=== PATIENT | male | born 1955 | race Caucasian/White ===

== ENCOUNTER → 2017-05-21 | Outpatient (CLI) | payer OTHER | LOC: RAD 08:49 | DX: R06.00 Dyspnea, unspecified (principal) ==

== ENCOUNTER 2018-05-21 14:25 | Emergency (ER) | payer OTHER ==
[~2018-05-21] VITALS: Ht 190.5 cm; Wt 102.1 kg
[2018-05-21] MEDS ORDERED: DIOVAN160 MG PO (14:53)
[2018-05-21] MEDS ORDERED: NEXIUM40 MG PO (14:53)
[2018-05-21] MEDS ORDERED: NORVASC5 MG PO (14:54)
[2018-05-21] MEDS ORDERED: MOBIC15 MG PO (14:54)
[2018-05-21] MEDS ORDERED: LOPRESSOR50 PO (14:54)
[2018-05-21 15:37] LABS: ABSOLUTE NEUTROPHILS 5.4 thou/uL (1.4-8.2); BASOPHILS 0.2 % (0.0-2.0); EOSINOPHILS 0.6 % (0.0-3.0); HEMOGLOBIN 17.1 gm/dL (14.0-18.0); LYMPHOCYTES 5.6 % (24.0-44.0); MCH 31.7 pg (26.0-34.0); MCHC 34.9 g/dL (28.0-37.0); MCV 90.8 fL (80.0-100.0); MONOCYTES 8.3 % (1.0-8.0); PLATELET COUNT 184 thou/uL (150-400); POLYS 85.3 % (36.0-66.0); RBC 5.39 mil/uL (4.50-6.00); RDW 13.6 % (10.5-14.5); WBC 6.3 thou/uL (4.0-11.0)
[2018-05-21 15:40] LABS: ANION GAP 11 mmol/L (7-16); BUN 29 mg/dL (7-18); CALCIUM 9.2 mg/dL (8.5-10.1); CHLORIDE 103 mmol/L (98-107); CO2 26 mmol/L (21-32); CREATININE 1.2 mg/dL (0.7-1.3); GLUCOSE 112 mg/dL (74-106); POTASSIUM 3.3 mmol/L (3.5-5.1); SODIUM 140 mmol/L (136-145)
[2018-05-21 15:49] LABS: ALBUMIN 3.8 g/dL (3.4-5.0); SGOT 22 U/L (15-37); SGPT 52 U/L (30-65); TOTAL BILIRUBIN 0.8 mg/dL (<0.1-1.0); TOTAL PROTEIN 7.4 g/dL (6.4-8.2); TROPONIN-I <0.06 ng/mL (<0.06)
[2018-05-21] MEDS ORDERED: ZOFRAN ODT4 MG PO (17:03)
[2018-05-21 18:03] VITALS: BP 106/74
--- NOTE | 2018-05-22 15:12 | EKG ---
[address] [address] ELECTROCARDIOGRAM REPORT Name: BUSTER COBB Room #: DEP BERNIE España#: [id number] Admission: 05/21/18 Attend Phys: Discharge: 05/21/18 Date of : 59 Report #: [id number] THIS REPORT FOR: //name// [facility] ED Test Date: 2018-05-21 Test Time: 16:23:43 Pat Name: BUSTER COBB Department: Room: Gender: Digital Sales Assistant: DOLORES : 1955 Requested By: Martin Antonio Order Number: [id number] MD: Jairo Sanchez Measurements Intervals [place] Rate: 73 P: 67 [place]: 201 QRS: 68 QRSD: 115 T: -14 QT: 404 QTc: 446 Interpretive Statements Sinus rhythm Ventricular trigeminy Nonspecific intraventricular conduction delay Borderline repolarization abnormality Compared to ECG 01/26/2006 07:03:11 Ventricular premature complex(es) now present Intraventricular conduction delay now present Sinus arrhythmia no longer present Electronically Signed On 05-22-2018 15:12:24 FINANCIAL PROFESSIONAL by Jairo Sanchez [email or web address] <ELECTRONICALLY SIGNED> By: Jairo Sanchez MD 05/22/18 1512 1623 1623 Jairo Sanchez MD /EPI
== END 2018-05-21 18:04 | disposition home or self-care (01) ==
LOC: ER 14:25
PROVIDERS: Emergency Medicine
DX: K52.9 Noninfective gastroenteritis and colitis, unspecified (principal); R00.8 Other abnormalities of heart beat; I10 Essential (primary) hypertension; E78.00 Pure hypercholesterolemia, unspecified

== ENCOUNTER 2018-08-15 19:28 | Emergency (ER) | payer OTHER ==
[~2018-08-15] VITALS: Ht 190.5 cm; Wt 103.4 kg
[~2018-08-15 19:28] MED LIST: DIOVAN160 MG PO; LOPRESSOR50 PO; MOBIC15 MG PO; NEXIUM40 MG PO; NORVASC5 MG PO; ZOFRAN ODT4 MG PO
[2018-08-15] MEDS ORDERED: TESSALON PERLE100 MG PO (21:42)
[2018-08-15] MEDS ORDERED: GUAIFEN-CODEINE10 ML PO (21:42)
[2018-08-15 22:11] VITALS: BP 160/80
--- NOTE | 2018-08-16 10:51 | EKG ---
[place] [address] [employer] [place] [address] ELECTROCARDIOGRAM REPORT Name: BUSTER COBB Room #: DEP BERNIE España#: [id number] ������������������ Admission: 08/15/18 ������������������ Attend Phys: Discharge: 08/15/18 ������������������ Date of : 59 Report #: [id number] ����������������������������������������������������������������� [id number] THIS REPORT FOR: //name// [facility] ED Test Date: 2018-08-15 Test Time: 20:04:07 Pat Name: BUSTER COBB Department: Room: Gender: Sales Support Specialist: : 1955 Requested By: Daria Camilo Order Number: [id number] MD: Aguilar Velasquez Measurements Intervals [place] Rate: 96 P: 41 MS: 210 QRS: 58 QRSD: 100 T: 26 QT: 329 QTc: 416 Interpretive Statements Sinus rhythm Prolonged [place] interval Compared to ECG 05/21/2018 16:23:43 First degree AV block now present Ventricular premature complex(es) no longer present Intraventricular conduction delay no longer present Electronically Signed On 08-16-2018 10:51:34 CDT by Aguilar Velasquez [email or web address] ��������������������������������������������� <ELECTRONICALLY SIGNED> ���������������������������������������� By: Aguilar Velasquez MD ��������������������������������������������� 08/16/18 1051 03 03 Aguilar Velasquez MD /ROSEMARY
--- NOTE | 2018-08-16 10:52 | EKG ---
[place] [address] [facility] [email or web address] [address] ELECTROCARDIOGRAM REPORT Name: BUSTER COBB Room #: DEP BERNIE Esp[place]#: [id number] ������������������ Admission: 08/15/18 ������������������ Attend Phys: Discharge: 08/15/18 ������������������ Date of : 59 Report #: [id number] ����������������������������������������������������������������� [id number] THIS REPORT FOR: //name// [facility] ED Test Date: 2018-08-15 Test Time: 23:21:52 Pat Name: BUSTER COBB Department: Room: Gender: Juvenile Counselor: : 1955 Requested By: Daria Camilo Order Number: [id number] MD: Aguilar Velasquez Measurements Intervals [place] Rate: 85 P: 47 [place]: 205 QRS: 53 QRSD: 92 T: 11 QT: 343 QTc: 408 Interpretive Statements Sinus rhythm Borderline prolonged [place] interval Compared to ECG 05/21/2018 16:23:43 Ventricular premature complex(es) no longer present Intraventricular conduction delay no longer present Electronically Signed On 08-16-2018 10:52:12 CDT by Aguilar Velasquez [email or web address] ��������������������������������������������� <ELECTRONICALLY SIGNED> ���������������������������������������� By: Aguilar Velasquez MD ��������������������������������������������� 08/16/18 1052 2321 2321 Aguilar Velasquez MD /ROSEMARY
== END 2018-08-15 22:11 | disposition home or self-care (01) ==
LOC: ER 19:28
DX: J10.1 Influenza due to other identified influenza virus with other respiratory manifestations (principal); I10 Essential (primary) hypertension; E78.00 Pure hypercholesterolemia, unspecified; G25.81 Restless legs syndrome

== ENCOUNTER 2018-08-15 23:14 | Emergency (ER) | payer OTHER ==
[~2018-08-15] VITALS: Ht 190.5 cm; Wt 103.4 kg
[~2018-08-15 23:14] MED LIST changes: +GUAIFEN-CODEINE10 ML PO; +TESSALON PERLE100 MG PO
[2018-08-15 23:26] LABS: ABSOLUTE NEUTROPHILS 5.9 thou/uL (1.4-8.2); BASOPHILS 0.4 % (0.0-2.0); EOSINOPHILS 0.8 % (0.0-3.0); HEMATOCRIT 40.5 % (42.0-52.0); LYMPHOCYTES 8.1 % (24.0-44.0); MCH 31.6 pg (26.0-34.0); MCHC 34.5 g/dL (28.0-37.0); MCV 91.6 fL (80.0-100.0); MONOCYTES 11.6 % (1.0-8.0); PLATELET COUNT 158 thou/uL (150-400); POLYS 79.1 % (36.0-66.0); RBC 4.42 mil/uL (4.50-6.00); RDW 13.3 % (10.5-14.5); WBC 7.5 thou/uL (4.0-11.0)
[2018-08-15 23:35] LABS: CALCIUM 9.2 mg/dL (8.5-10.1); CREATININE 1.2 mg/dL (0.7-1.3); POTASSIUM 3.9 mmol/L (3.5-5.1)
[2018-08-15 23:41] LABS: ALBUMIN 3.6 g/dL (3.4-5.0); DIRECT BILIRUBIN 0.1 mg/dL (<0.1-0.3); TOTAL BILIRUBIN 0.4 mg/dL (<0.1-1.0); TOTAL PROTEIN 6.7 g/dL (6.4-8.2)
[2018-08-16 03:34] VITALS: BP 125/66
== END 2018-08-16 03:36 | disposition home or self-care (01) ==
LOC: ER 23:14
PROVIDERS: Emergency Medicine
DX: J10.1 Influenza due to other identified influenza virus with other respiratory manifestations (principal); R55 Syncope and collapse; I10 Essential (primary) hypertension; E78.00 Pure hypercholesterolemia, unspecified; G25.81 Restless legs syndrome

== ENCOUNTER 2019-03-11 05:58 | Inpatient (IN) | payer OTHER ==
[2019-02-22 13:28] LABS: URINE BILIRUBIN NEGATIVE (Negative); URINE BLOOD NEGATIVE (Negative); URINE CLARITY CLEAR; URINE COLOR YELLOW; URINE GLUCOSE-RANDOM* NEGATIVE (Negative); URINE KETONES NEGATIVE (Negative); URINE LEUKOCYTES-REFLEX NEGATIVE (Negative); URINE NITRITE-REFLEX NEGATIVE (Negative); URINE PROTEIN (DIPSTICK) NEGATIVE (Negative); URINE UROBILINOGEN 0.2 E.U./dl (0.2-1.0)
[2019-02-22 13:33] LABS: HEMATOCRIT 46.5 % (42.0-52.0); HEMOGLOBIN 15.6 gm/dL (14.0-18.0); MCH 30.9 pg (26.0-34.0); MCHC 33.4 g/dL (28.0-37.0); MCV 92.5 fL (80.0-100.0); RBC 5.03 mil/uL (4.50-6.00); RDW 14.1 % (10.5-14.5); WBC 6.8 thou/uL (4.0-11.0)
[2019-02-22 13:45] LABS: ALBUMIN 4.3 g/dL (3.4-5.0); CALCIUM 9.8 mg/dL (8.5-10.1); CREATININE 0.8 mg/dL (0.7-1.3); POTASSIUM 3.9 mmol/L (3.5-5.1); PROTIME 10.8 Seconds (9.3-11.4)
[~2019-03-11] VITALS: Ht 190.5 cm; Wt 103.0 kg
[~2019-03-11 05:58] MED LIST changes: +COQ-10100 MG PO; +MULTI VITAMIN1 EACH PO; +OMEGA-3 KRILL1 EACH PO; +PROBIOTIC1 EAC1 PO; +TOPROL XL100 MG PO; +TURMERIC500 M2 PO; +VALSARTAN-HCTZ1 EAC1 PO; +VITAMIN B-12500 MCG PO; +VITAMIN D-32000 UNIT PO; +VITAMIN E400 UNI6 PO; +VITAMINC500 PO
[2019-03-11 06:53] VITALS: BP 147/89
[2019-03-11 10:40] VITALS: BP 146/93
--- NOTE | 2019-03-11 12:18 | O ---
[facility] [place] [address] [place] [address] OPERATIVE REPORT Name: BUSTER COBB Room #: 433-I [facility] IN .R.#: [id number] Admission: 03/11/19 Attend Phys: See Guevara MD Discharge: Date of : 59 Report #: [id number] THIS REPORT FOR: //name// CC: See Hale DATE OF SERVICE: 03/11/2019 PREOPERATIVE DIAGNOSIS: End-stage degenerative arthritis, left knee with varus malalignment. POSTOPERATIVE DIAGNOSIS: End-stage degenerative arthritis, left knee with varus malalignment. PROCEDURE: Left total knee arthroplasty. SURGEON: See Guevara MD. INDICATIONS: This healthy, active 63-year-old gentleman has progressive bilateral knee pain with mild varus malalignment and clinical radiographic evidence of significant 3-compartment degenerative change. He has tried conservative measures in the past without much benefit. He has elected to go ahead with left total knee replacement at this time. DESCRIPTION OF PROCEDURE: The patient was taken to the operating room where he was placed under general anesthesia. A femoral nerve block was also applied. Preoperative antibiotics were administered. The left knee and leg were meticulously prepped and draped and a thigh tourniquet inflated to 325 mmHg. An anterior longitudinal skin incision was made and carried through the medial retinaculum, reflecting the patella laterally. Marked degenerative change in all 3 compartments was noted. Intramedullary guides were used on both the femur and the tibia and the Luis and Nephew knee system was utilized. The femur seemed best suited for a size 6 femoral component. The tibia was best suited for a size 5 tibial component. The tibia was cut perpendicular to long axis of the bone, correcting the mild preoperative varus malalignment. The patellar surface was resected, a 38 mm patellar button fit nicely. A trial reduction was performed and an 11 mm polyethylene insert seemed to fit appropriately with full knee extension, good flexion, and satisfactory stability with varus valgus stress. The preoperative varus malalignment was improved nicely. The patella seemed to track nicely. These trial components were removed. The intramedullary canal was blocked with a bone block on both the femoral and tibial sides. The surfaces were thoroughly irrigated and dried. Methyl methacrylate cement was mixed and injected into the porous surface of the tibia. The size 5 nonporous tibial base plate was then applied, positioning this in appropriate alignment. It seated nicely and [facility] [address] [place] [address] OPERATIVE REPORT Name: REZABUSTER Kelle Room #: 433-I [facility] IN [facility]#: [id number] Admission: 03/11/19 Attend Phys: See Guevara MD Discharge: Date of : 59 Report #: [id number] appeared to be secure. An 11 mm polyethylene Legion cruciate retaining polyethylene insert was inserted. This snapped into place and seated nicely and appeared to be secure. A size 6 porous Legion cruciate retaining femoral component was impacted on the distal femur. It seated nicely and appeared to be secure. A 38 mm patellar button was cemented into place using appropriate anchor holes and cement. This was secured with a patellar clamp until the cement had fully hardened. Once the cement was secure, range of motion, alignment and stability were once again assessed and felt to be satisfactory. The knee demonstrated full knee extension. The patellar tracks nicely. The knee flexes well beyond 135 degrees and seems to be stable. At this point, a Hemovac drain was left in the wound, exiting through a separate stab incision. The fascia was then closed with multiple #1 Vicryl sutures. The tourniquet was deflated after a total tourniquet time of 58 minutes. The subcutaneous tissues were closed with 0 Monocryl. The skin was closed with skin ghassan. A sterile dressing was applied. The patient was awakened and returned to recovery room in good condition. <ELECTRONICALLY SIGNED> By: See Guevara MD 03/11/19 1218 0919 0931 See Guevara MD /nt
[2019-03-11 16:42] VITALS: BP 138/95
--- NOTE | 2019-03-11 17:40 | NUR ---
STARTED 1600IV ABT AT THIS TIME RECIEVED FROM PHARMACY AT THIS TIME'
--- NOTE | 2019-03-11 19:30 | NUR ---
PT ARRIVED ON UNIT AT 10:49 PT ALERT XS 4 ACCOMPANIED BY . Enzo.Cheryl. 97.1 18 65 146/93 O2 SAT =97 RA. HAS PICCO DRESSING TO LEFT KNEE AND HEMO VAC EMPTIED 60 CC. IV FLUIDS STARTED ORDERED.
[2019-03-11 20:53] VITALS: BP 140/92
[2019-03-12 00:45] VITALS: BP 119/79
[2019-03-12 03:40] LABS: HEMATOCRIT 38.8 % (42.0-52.0); MCHC 33.5 g/dL (28.0-37.0); MCV 92.4 fL (80.0-100.0); RBC 4.2 mil/uL (4.50-6.00); RDW 13.6 % (10.5-14.5); WBC 12.8 thou/uL (4.0-11.0)
[2019-03-12 04:20] VITALS: BP 125/81
--- NOTE | 2019-03-12 05:28 | NUR ---
PATIENT ALERT AND ORIENTED X4. C/O PAIN X2, MED GIVEN. SAT ON EDGE OF BED LAST NIGHT AND STOOD BY BED. NO PROBLEMS NOTED. PATIENT TOLERATED WELL. DRESSING ON L KNEE D/I. HEMAVAC REMOVED THIS AM. SMALL AMOUNT OF BLEEDING NOTED, PRESSURE APPLIED FOR ABOUT A MINUTE AND THEN A PRESSURE DRESSING APPLIED. PATIENT TOLERATED WELL. EXPLAINED TO PATIENT WHAT TO WATCH FOR FROM INSERTION SITE. PATIENT SLEPT MOST OF THE NIGHT.
[2019-03-12 07:42] VITALS: BP 117/82
--- NOTE | 2019-03-12 08:25 | NUR ---
INITIAL ASSESSMENT: Pt evaluated for d/c planning needs. Reviewed chart and spoke with nurse and pt. Pt is alert and oriented. Pt lives in house with spouse and was independent with ADL's prior to admission to the hospital. Pt has cane at home and CPAP. Pt will need walker on d/c from h ospital. Pt has not had home health in the past. Pt had outpatient PT prior to his surgery, and he plans to continue with outpatient PT on d/c. Will remain available to assist as needed.
--- NOTE | 2019-03-12 13:46 | NUR ---
ASSUMED CARE OF PT AT 0700. PT WALKED WITH PT TODAY AND BECAME FATIGUED AND WEAK. HEMO VAC WAS REMOVED. DRESSING ON THE L KNEE WAS CLEAN, DRY AND INTACT. PAIN BEING CONTROLLED WITH PAIN MEDICATION. BED AND CHAIR ALARM ON. BED IN LOWEST POSITION. CALL LIGHT WITH REACH AND FALL PRECAUTIONS IN PLACE. WILL CONTINUE TO MONITOR THE PT.
[2019-03-12 17:37] VITALS: BP 148/96
[2019-03-12 19:33] VITALS: BP 132/89
[2019-03-13] VITALS (7 sets, daily range): BP systolic 113–140; BP diastolic 64–97
--- NOTE | 2019-03-13 03:35 | NUR ---
PATIENT ALERT AND ORIENTED X4. C/O PAIN, MED GIVEN. UP WITH SBA. DRESSING ON L KNEE D/I. PASSING FLATUS BUT NO BM YET.SLEPT MOST OF NIGHT.
[2019-03-13 06:06] LABS: HEMATOCRIT 38.6 % (42.0-52.0); HEMOGLOBIN 12.9 gm/dL (14.0-18.0); MCH 31.2 pg (26.0-34.0); MCHC 33.4 g/dL (28.0-37.0); MCV 93.2 fL (80.0-100.0); RBC 4.14 mil/uL (4.50-6.00); RDW 13.9 % (10.5-14.5); WBC 11.6 thou/uL (4.0-11.0)
--- NOTE | 2019-03-13 16:50 | NUR ---
Assumed care of pt at 0700. Pt a&ox4. Pain controlled with prn pain medications. Dressing c/d/i. Ramin hose and SCD in place. Pt worked with PT. Orthostatic vitals completed. Call light within reach. Fall precautions in place. Will continue to monitor.
--- NOTE | 2019-03-14 04:11 | NUR ---
Pt. rested quietly at intervals during the night when checked on during frequent rounds. He has been medicated with po pain meds (see emar) for c/o left knee pain with some relief noted. Picco dressing to left knee is dry and intact. Bed alarm is on.
[2019-03-14 06:20] LABS: HEMATOCRIT 34.7 % (42.0-52.0); HEMOGLOBIN 11.8 gm/dL (14.0-18.0); MCH 31.6 pg (26.0-34.0); MCHC 34.1 g/dL (28.0-37.0); MCV 92.6 fL (80.0-100.0); RBC 3.75 mil/uL (4.50-6.00); RDW 13.4 % (10.5-14.5); WBC 10.7 thou/uL (4.0-11.0)
[2019-03-14 09:02] VITALS: BP 119/76
[2019-03-14 10:23] VITALS: BP 119/76
[2019-03-14 11:50] VITALS: BP 119/76
--- NOTE | 2019-03-14 12:35 | NUR ---
DISCHARGE PAPERWORK GONE OVER SIGNED AND COPY IN CHART. IV ACSESS DCD. RX GIVEN. ALL BELONGINGS PACKED AND SENT WITH PATIENT. PT WORKED WITH THERAPY AND WALKED AND CLIMBED STAIRS. PT GIVEN PRN PAIN MED BEFORE DISCHARGE.
== END 2019-03-14 12:30 | disposition home or self-care (01) | DRG 470 ==
LOC: 4S 05:58 → TBA 05:58 → PRE 08:06 → EDSTATUS 08:48 → OR 08:48 → PRE 08:52 → 4S 11:05 → PRE 12:31 → 4S 03-14 12:30
PROVIDERS: ADMIT Orthopaedic Surgery
PROC: 0SRD0J9 Replacement of Left Knee Joint with Synthetic Substitute, Cemented, Open Approach (ICD-10-PCS; principal; 2019-03-11)
DX: M17.12 Unilateral primary osteoarthritis, left knee (principal); M21.162 Varus deformity, not elsewhere classified, left knee; I95.1 Orthostatic hypotension; I10 Essential (primary) hypertension; K21.9 Gastro-esophageal reflux disease without esophagitis; G47.33 Obstructive sleep apnea (adult) (pediatric); Z85.828 Personal history of other malignant neoplasm of skin
CPT/HCPCS: 10102; 50010; 50101; 50415; 50954; 51130; 51225; 51412; 53364; 56525; 57095; 57104; 57180; 62110; 62900; 64042; 70005

== ENCOUNTER → 2021-02-22 | Outpatient (CLI) | payer BC ==
[~2021-02-22] MED LIST changes: +DIOVAN HCT 3201 EAC1 PO; +MELOXICAM15 MG PO; +NORVASC10 MG PO; +TYLENOL EXTRA500 MG PO; -VITAMIN D-32000 UNIT PO; +VITAMIN D350 MC3 PO
== END ==
LOC: SJCVCIMAG 08:16
PROVIDERS: ATTEND Internal Medicine
DX: I10 Essential (primary) hypertension (principal); R55 Syncope and collapse; R06.00 Dyspnea, unspecified

== ENCOUNTER → 2021-02-23 | Outpatient (CLI) | payer BC ==
[2021-02-23 11:39] LABS: URINE BILIRUBIN NEGATIVE (Negative); URINE BLOOD NEGATIVE (Negative); URINE CLARITY CLEAR; URINE COLOR YELLOW; URINE GLUCOSE-RANDOM* NEGATIVE (Negative); URINE KETONES NEGATIVE (Negative); URINE LEUKOCYTES-REFLEX NEGATIVE (Negative); URINE NITRITE-REFLEX NEGATIVE (Negative); URINE PROTEIN (DIPSTICK) NEGATIVE (Negative); URINE UROBILINOGEN 0.2 E.U./dl (0.2-1.0)
[2021-02-23 11:52] LABS: INR 1.02; PROTIME 11.1 Seconds (10.5-12.1)
== END ==
LOC: PAC 10:23
PROVIDERS: ATTEND Orthopaedic Surgery
DX: M17.11 Unilateral primary osteoarthritis, right knee (principal); I10 Essential (primary) hypertension

== ENCOUNTER → 2021-03-02 | Outpatient (CLI) | payer BC | LOC: LAB 12:03 | PROVIDERS: ATTEND Student in an Organized Health Care Education/Training Program | DX: Z01.812 Encounter for preprocedural laboratory examination (principal); Z20.822 Contact with and (suspected) exposure to COVID-19 ==

== ENCOUNTER 2021-03-05 06:14 | Observation (INO) | payer BC ==
[~2021-03-05] VITALS: Ht 188 cm; Wt 100.2 kg
[2021-03-05] VITALS (10 sets, daily range): BP systolic 111–140; BP diastolic 68–92
--- NOTE | 2021-03-05 09:56 | O ---
[facility] [place] [address] [place] [address] OPERATIVE REPORT Name: BUSTER COBB Room #: 150-2 ADM IN M.R.#: [id number] Admission: 03/05/21 Attend Phys: See Guevara MD Discharge: Date of : 59 Report #: [id number] THIS REPORT FOR: cc: Cody Hale MD, Rene P. MD Clymer,See Hassan MD ~ DATE OF SERVICE: 03/05/2021 PREOPERATIVE DIAGNOSIS: Right knee degenerative arthritis. POSTOPERATIVE DIAGNOSIS: Right knee degenerative arthritis. PROCEDURE: Right total knee arthroplasty. SURGEON: See Guevara MD INDICATIONS: This generally healthy, active 65-year-old gentleman has progressive degenerative arthritis of both knees. He underwent left total knee replacement 2 years ago with good result. He is returning now for right total knee replacement. We have discussed treatment options and risks and benefits. The patient and understand well. DESCRIPTION OF PROCEDURE: The patient was taken to the operating room where he was placed under general anesthesia. A femoral nerve block was also applied. The right knee and leg were meticulously prepped and draped and a thigh tourniquet inflated to 325 mmHg. An anterior longitudinal skin incision was made and carried through the medial retinaculum. The patella was reflected laterally. Marked degenerative change in all three compartments was noted. The Luis and Nephew knee system was utilized. Intramedullary guides were used on both the femur and the tibia. The femur was cut in 5 degrees of valgus and the tibia cut perpendicular to the long axis of the bone. Sufficient bone was resected to correct the preoperative varus malalignment and mild flexion contracture. The femur was best suited for a size 6 femoral component. The tibia was also best suited for a size 6 tibial component, a 9 mm polyethylene insert fit nicely and resulted in good knee range of motion, stability and alignment. The patellar surface was resected and a 38 mm patellar button fit nicely. The patella seemed to track well. The trial components were removed. The intramedullary canal was blocked with bone block on both the femoral and tibial sides. Methyl methacrylate cement was mixed and injected into the porous surface of the proximal tibia. The Luis and Nephew size 5 Margret II right nonporous tibial baseplate was then inserted. It was positioned in appropriate alignment and impacted into place. It seated nicely and appeared to be secure. Excess cement was removed around its margin. A 9 mm Legion cruciate retaining articular insert was then snapped into place. This also seated nicely and appeared to be secure. A size 6 right [address] [address] OPERATIVE REPORT Name: BUSTER COBB Room #: 150-2 [facility] IN .R.#: [id number] Admission: 03/05/21 Attend Phys: See Guevara MD Discharge: Date of : 59 Report #: [id number] retaining Legion porous femoral component was impacted on the distal femur. It seated nicely and appeared to be secure. A 38 mm Margret II patellar button was cemented into place using anchor holes and methyl methacrylate cement. It was secured with a patellar clamp until the cement had hardened, excess cement was removed around its margin. Once the cement was firm, alignment, range of motion and stability were assessed and felt to be satisfactory. The patella tracks nicely and appears to be stable. The tourniquet was deflated after a total tourniquet time of 52 minutes. The wound was copiously irrigated. A single Hemovac was left in the wound exiting through a separate stab incision. The fascia was closed with multiple #1 Vicryl sutures. The subcutaneous tissues were closed with 0 Monocryl. The skin was closed with skin ghassan. A sterile dressing was applied. The patient was awakened and returned to recovery room in good condition. <ELECTRONICALLY SIGNED> By: See Guevara MD 03/05/21 0956 0825 0839 See Guevara MD /nt
[2021-03-06 04:22] VITALS: BP 111/70
[2021-03-06 04:32] VITALS: BP 137/70
[2021-03-06 05:51] LABS: HEMATOCRIT 37.3 % (42.0-52.0); HEMOGLOBIN 12.7 gm/dL (14.0-18.0); MCH 31.2 pg (26.0-34.0); MCHC 33.9 g/dL (28.0-37.0); RBC 4.06 mil/uL (4.50-6.00); RDW 13.4 % (10.5-14.5); WBC 13.4 thou/uL (4.0-11.0)
[2021-03-06 06:09] LABS: CALCIUM 8.5 mg/dL (8.5-10.1); CREATININE 0.9 mg/dL (0.7-1.3)
--- NOTE | 2021-03-06 06:20 | NUR ---
Pt A/OX4,VSS. Pt/ at shift change reported they requested they requested for polar pack and indicated they would get one on the floor;informed I would follow up with wardrobe supervisor since we don't have any on the floor. [employer] [place] checked CS unable to locate any,advised to have them f/u in AM. Margaux SUMMERS contacted and stated the same. Pt and spouse update regarding above and verbalized understanding. Will endorse to oncoming nurse to follow up with OR. Pt running A flutter on the monitor asymptomatic. SHAMEKA dsg in place on right knee with a Hemovac w/sanguineous drainage 100cc. Resting quietly w/o any distress encouraged to call as needed.
[2021-03-06 07:05] VITALS: BP 136/87
--- NOTE | 2021-03-06 07:28 | EKG ---
[address] [place] [address] ELECTROCARDIOGRAM REPORT Name: BUSTER COBB Room #: 441-[facility] M.R.#: [id number] Admission: 03/05/21 Attend Phys: See Guevara MD Discharge: Date of : 59 Report #: [id number] [facility] Test Date: 2021-03-05 Test Time: 13:06:46 Pat Name: BUSTER COBB Department: Room: 441 Gender: M Glassware Verifier: NICOLÁS : 1955 Requested By: Sun Abrams Order Number: [id number] : Herve Dunaway Measurements Intervals [place] Rate: 79 P: [place]: QRS: 42 QRSD: 106 T: 29 QT: 394 QTc: 452 Interpretive Statements Atrial flutter with predominant 3:1 AV block Compared to ECG 08/15/2018 23:21:52 AV block, advanced (high-grade) now present ST (T wave) deviation now present Sinus rhythm no longer present Electronically Signed On 03-06-2021 7:28:34 CDT by Herve Dunaway [email or web address] <ELECTRONICALLY SIGNED> By: Herve Dunaway MD, FACC 03/06/21 0728 1306 1306 Herve Dunaway MD, FACC /EPI
--- NOTE | 2021-03-06 07:30 | EKG ---
[place] [address] [facility] [place] [address] ELECTROCARDIOGRAM REPORT Name: BUSTER COBB Room #: 441-[facility] M.R.#: [id number] Admission: 03/05/21 Attend Phys: See Guevara MD Discharge: Date of : 59 Report #: [id number] [facility] Test Date: 2021-03-05 Test Time: 16:15:40 Pat Name: BUSTER COBB Department: Room: [facility] Gender: M Vocational Placement Specialist: [id number] : 1955 Requested By: Bennett Gaitan Order Number: [id number] MD: Herve Dunaway Measurements Intervals [place] Rate: 86 P: [place]: QRS: 26 QRSD: 110 T: 8 QT: 385 QTc: 461 Interpretive Statements Atrial flutter with predominant 3:1 AV block Compared to ECG 03/05/2021 13:06:46 ST (T wave) deviation no longer present Electronically Signed On 03-06-2021 7:30:05 CDT by Herve Dunaway [email or web address] <ELECTRONICALLY SIGNED> By: Herve Dunaway MD, [facility] 03/06/21 0730 14 Herve Dunaway MD, FAC /EPI
--- NOTE | 2021-03-06 09:48 | NUR ---
Chart review. visited patient at bedside, getting ready to work with OT. Intro to cm and dcp. He has fww that he got after his 1st knee. Lives at home with his . Independent when feeling good. Has CPAP for bedtime and during naps. Manage own medication. Drives vehicle. 4 steps at home. Outpt therapy set up already for 03/09 at [facility]. DCP: home with outpt therapy.
[2021-03-06 15:26] VITALS: BP 136/87
[2021-03-06 15:32] VITALS: BP 128/84
--- NOTE | 2021-03-06 18:24 | NUR ---
D/C ORDER PENDING FOR AFTER PT. PER PT PT CAN D/C TODAY. HEMOVAC DRAINAGE REMOVE PER DR. GEORGE ORDERS. ICE POLAR PACK PLACE THIS AM PER PT REQUEST. IV AND TELE D/C. ALL BELONGINGS WITH PT. WENT THROUGH D/C INSTRUCTION WITH PT, PT AWARE OF OUTPT APPAOINTMENT. DENIES ANY QUESTIONS. PT TAKEN DOWN VIA WHEEL CHAIR, HERE TO GET PT
== END 2021-03-06 18:39 | disposition home or self-care (01) ==
LOC: PRE → 4S 06:14 → TBA 06:14 → PRE 08:16 → 4S 11:13 → PRE 11:44 → 4S 13:57 → PRE 14:51 → 4S 03-06 18:39
PROVIDERS: ADMIT Orthopaedic Surgery; ATTEND Orthopaedic Surgery
DX: M17.11 Unilateral primary osteoarthritis, right knee (principal); I48.92 Unspecified atrial flutter; I10 Essential (primary) hypertension; E78.5 Hyperlipidemia, unspecified; K21.9 Gastro-esophageal reflux disease without esophagitis; G47.33 Obstructive sleep apnea (adult) (pediatric); Z79.899 Other long term (current) drug therapy
CPT/HCPCS: 10100; 50010; 50101; 50415; 50954; 51130; 51225; 51320; 51412; 56525; 57095; 57103; 57104; 57180; 58449; 62110; 62900; 64042; 70005

== ENCOUNTER 2021-06-01 06:29 | Observation (INO) | payer BC ==
[~2021-06-01] VITALS: Ht 188 cm; Wt 102.1 kg
[2021-06-01 07:28] VITALS: BP 130/86
[2021-06-01 07:35] LABS: ABSOLUTE NEUTROPHILS 3.3 thou/uL (1.4-8.2); BASOPHILS 0.9 % (0.0-2.0); EOSINOPHILS 5.2 % (0.0-3.0); HEMOGLOBIN 14.8 gm/dL (14.0-18.0); LYMPHOCYTES 22.5 % (24.0-44.0); MCH 30.4 pg (26.0-34.0); MCHC 33.6 g/dL (28.0-37.0); MCV 90.4 fL (80.0-100.0); MONOCYTES 14.1 % (1.0-8.0); PLATELET COUNT 194 thou/uL (150-400); POLYS 57.3 % (36.0-66.0); RBC 4.86 mil/uL (4.50-6.00); RDW 13.2 % (10.5-14.5); WBC 5.8 thou/uL (4.0-11.0)
[2021-06-01] MEDS ORDERED: XARELTO20 MG PO (07:36)
[2021-06-01 07:43] LABS: CALCIUM 9.7 mg/dL (8.5-10.1); CREATININE 0.9 mg/dL (0.7-1.3); POTASSIUM 3.7 mmol/L (3.5-5.1)
[2021-06-01 07:48] LABS: APTT 25.5 Seconds (24.5-32.8); INR 1.1; PROTIME 11.1 Seconds (9.3-11.4)
[2021-06-01 07:50] LABS: ALBUMIN 4.1 g/dL (3.4-5.0); TOTAL BILIRUBIN 0.5 mg/dL (0.2-1.0); TOTAL PROTEIN 7.1 g/dL (6.4-8.2)
[2021-06-01 14:20] VITALS: BP 123/79
--- NOTE | 2021-06-01 15:17 | NUR ---
PATIENT ARRIVED ON UNIT AT APROXIMATELY 1430. ALERT AND ORIENTED, TELEMETRY APPLIED, ORIENTED TO ROOM AND PROCEDURES. PT STATED HE HAS MILD CHEST PAIN WHICH WAS ADDRESSED IN [facility] WITH TYLENOL. PATIENT STATED THAT HAS HELPED THE PAIN. PATIENT DENIED ANY OTHER COMPLAINTS. RIGHT GROIN SITE C/D/I. POST OP VITALS STARTED.
[2021-06-01 19:55] VITALS: BP 117/74
[2021-06-01 20:00] VITALS: BP 117/74
[2021-06-01 23:58] VITALS: BP 123/74
[2021-06-02] VITALS: BP 123/74
[2021-06-02 04:34] VITALS: BP 133/73
[2021-06-02 08:31] VITALS: BP 135/74
[2021-06-02 11:48] VITALS: BP 142/85
[2021-06-02 12:36] VITALS: BP 142/85
--- NOTE | 2021-06-02 12:54 | NUR ---
DISCHARGED PATIENT. EXPLAINED DISCHARGE AND HIGHLIGHTED DISCHARGE INSTRUCTIONS TO PATIENT AND SPOUSE. INCLUDING UPCOMING APPOINTMENTS AND MEDICATION CHANGES. PATIENT AND SPOUSE DENIED HAVING QUESTIONS. REMOVED IV TIP WAS INTACT, REMOVED CIRCUITS ENGINEER.
[2021-06-02 13:06] VITALS: BP 142/85
--- NOTE | 2021-06-03 16:28 | D ---
[facility] [address] DISCHARGE SUMMARY Name: BUSTER COBB Room #: 202-P [facility].#: [id number] Admission: 06/01/21 Attend Phys: Jairo Sanchez MD Discharge: 06/02/21 Date of : 59 Report #: [id number] THIS REPORT FOR: cc: Cody Hale MD, Rene P. MD Lammoglia,Kvng Hassan MD ~ DATE OF SERVICE: 06/02/2021 DISCHARGE DIAGNOSES: Symptomatic paroxysmal atrial fibrillation. PROCEDURE PERFORMED: Atrial fibrillation ablation. FOLLOWUP: 1. Dr. Sanchez in [address] Gaitan in 3 months. BRIEF CLINICAL HISTORY: She history and physical in the chart. HOSPITAL COURSE: The patient was admitted to the hospital and underwent uncomplicated ablation under sedation and general anesthesia. Post-procedure, the patient remained in sinus rhythm without any hemodynamic or electrical instability. He has been discharged in a stable condition. DISCHARGE ACTIVITY: No heavy lifting for 2 days and then ad zeferino. DISCHARGE MEDICATIONS: Continue preadmission and see discharge summary. <ELECTRONICALLY SIGNED> By: Kvng Man MD 06/03/21 1628 1018 1038 Kvng Man MD /nt
--- NOTE | 2021-06-08 14:55 | P ---
[facility] [place] [address] PROCEDURE REPORT Name: BUSTER COBB Room #: 202-P [facility] [place]#: [id number] Admission: 06/01/21 Attend Phys: Jairo Sanchez MD Discharge: 06/02/21 Date of : 59 Report #: [id number] THIS REPORT FOR: cc: Cody Hale MD, Rene P. MD Couchonnal, Luis F. MD ~ DATE OF SERVICE: 06/01/2021 PREOPERATIVE DIAGNOSES: Atrial fibrillation and atrial flutter. POSTOPERATIVE DIAGNOSES: Atrial fibrillation and atrial flutter. INDICATIONS: The patient is a 65-year-old with history of atrial fibrillation and atrial flutter, here for ablation. ANESTHESIA: The patient underwent general anesthesia with no anesthesia related complications. DESCRIPTION OF PROCEDURE: The patient went informed consent. We discussed the details of the procedure including the risks, which include but not limited to bleeding, vascular damage, cardiac perforation, stroke and MD. He understood these risks and is willing to proceed. The patient was brought to the EP laboratory in fasting and sedated state, prepped and draped in standard fashion. Next, I obtained access to the right femoral vein x 3, placing an 8, 9 and 7-Kyrgyz short sheath using the modified Seldinger technique. Under fluoroscopy, I placed a Decapolar catheter in the coronary sinus and later into the SVC for phrenic nerve pacing. An ICE catheter was placed in the right atrium. At baseline, the patient was in sinus rhythm. The patient was systemically heparinized. Transseptal was performed using an SL1 sheath and a Harvey needle, which was straightforward. I then exchanged for the cryosheath and placed the Lasso catheter in the left atrium. A 3D geometry of the left atrium was created. Initially, I had difficulties finding the left superior pulmonary vein as it was quite vertical. I then started by isolating the pulmonary veins. I started by isolating the left inferior pulmonary vein. This underwent two 4-minute freezes and I isolated at 51 seconds during the second freeze. I then went to the left superior pulmonary vein. I performed three 4-minute freezes which did not result in isolation. I then performed a freeze where I placed the balloon more along the roof of this vein and this resulted in isolation at 110 seconds. This final freeze was of 300 seconds duration. I then went to the right-sided veins. The right superior pulmonary vein underwent three 3-minute freezes. The vein isolated during the third freeze at 50 seconds. The right inferior pulmonary vein underwent a single 4-minute freeze, isolating at 56 seconds. I then went and re-interrogate the veins and the left superior pulmonary vein was reconnected. I performed 2 freezes and came off early as the attempts were not very good. Therefore, I [address] [address] PROCEDURE REPORT Name: BUSTER COBB Room #: 202-P [facility] [place]#: [id number] Admission: 06/01/21 Attend Phys: Jairo Sanchez MD Discharge: 06/02/21 Date of : 59 Report #: [id number] went back up again and again performed another freeze along the posterior roof as I did previously and again this resulted in isolation. This final freeze was of 4 minutes' duration and isolation was achieved at 40 seconds. Next, all catheters and sheaths were pulled to the right atrium. The patient was then prepped for atrial flutter ablation. Atrial flutter ablation: Using an 8 mm ablation catheter via a ramp sheath, ablation was performed at 70 kent, 60 degrees. A continuous drag lesion was performed along 6 o'clock along the cavotricuspid isthmus. Preablation, the transisthmus conduction time was 90 milliseconds. Post-ablation, it was 165 milliseconds with evidence of bidirectional block. As such, I verified that there was no pericardial effusion. The patient received systemic protamine and catheters and sheaths were pulled and a ynetjv-vo-wbrei suture was deployed to the groin for hemostasis. There were no procedure related complications. CONCLUSIONS: 1. Successful atrial fibrillation ablation with isolation of the pulmonary veins. 2. Successful atrial flutter ablation with bidirectional block. PROCEDURES PERFORMED: 1. Atrial fibrillation ablation, CPT code 58679. 2. A 3D mapping, CPT code 35897. 3. Intracardiac echo, CPT code 71927. 4. Second pathway ablation, CPT code 76509. <ELECTRONICALLY SIGNED> By: Jairo Sanchez MD 06/08/21 [id number] [id number] Jairo Sanchez MD /nt
== END 2021-06-02 13:11 | disposition home or self-care (01) ==
LOC: CATH 06:29 → 2N 15:00 → CATH 16:14 → 2N 16:36
PROVIDERS: ADMIT Internal Medicine Cardiovascular Disease; ATTEND Internal Medicine Cardiovascular Disease
DX: I48.0 Paroxysmal atrial fibrillation (principal); I48.92 Unspecified atrial flutter; Z20.822 Contact with and (suspected) exposure to COVID-19; I10 Essential (primary) hypertension; E78.5 Hyperlipidemia, unspecified; M19.90 Unspecified osteoarthritis, unspecified site; I49.3 Ventricular premature depolarization; Z79.899 Other long term (current) drug therapy; Z90.89 Acquired absence of other organs
CPT/HCPCS: 62110; 62900; 65020; 65040; 70005